=== PATIENT | male | born 1995 | race Caucasian/White ===

== ENCOUNTER 2019-07-25 13:44 | Emergency (ER) | payer OTHER ==
[~2019-07-25] VITALS: Ht 188 cm; Wt 115.2 kg
[2019-07-25 13:52] VITALS: Ht 188 cm; Wt 115.2 kg
[2019-07-25 17:21] LABS: AMPHETAMINE QUAL UR NONE DETECTED (See below)
[2019-07-25 17:28] LABS: CHLORIDE SERUM 105 mmol/L (98-107); POTASSIUM SERUM 3.5 mmol/L (3.5-5.1); SODIUM SERUM 143 mmol/L (136-145)
[2019-07-25 17:29] LABS: ALBUMIN 4.1 g/dL (3.4-5.0); ALKALINE PHOSPHATASE 65 U/L (46-116); ALT/SGPT 51 U/L (16-63); AST/SGOT 19 U/L (15-37); BILIRUBIN TOTAL 0.34 mg/dL (0.20-1.00); CALCIUM 8.8 mg/dL (8.5-10.1); CARBON DIOXIDE 26.8 mmol/L (21-32); GFR1 > 60 mL/min; GLUCOSE SERUM 106 mg/dL (74-106); TOTAL PROTEIN, SERUM 7.8 g/dL (6.4-8.2)
[2019-07-25 17:31] LABS: T3 TOTAL 1.19 ng/mL
[2019-07-25 17:45] LABS: FREE T4 0.89 ng/dL (0.76-1.46); T4(THYROXINE) 8.2 ug/dL (4.7-13.3)
[2019-07-25 18:30] VITALS: BP 142/89
== END 2019-07-25 18:30 | disposition home or self-care (01) ==
LOC: ED 13:44
PROVIDERS: Emergency Medicine
DX: R25.1 Tremor, unspecified (principal); M54.5 Low back pain; J45.909 Unspecified asthma, uncomplicated
CPT/HCPCS: 84439